=== PATIENT | male | born 1990 | race Caucasian/White ===

== ENCOUNTER 2017-05-31 19:30 | Emergency (ER) | payer OTHER ==
[~2017-05-31] VITALS: Ht 182.9 cm; Wt 116.8 kg
[2017-05-31 19:40] VITALS: BP 146/100
[2017-05-31] MEDS ORDERED: IBUP-1986 PO (20:22)
== END 2017-05-31 22:46 | disposition home or self-care (01) ==
LOC: ER 19:30 → EDBD 19:30 → ER 22:46
DX: S93.401A Sprain of unspecified ligament of right ankle, initial encounter (principal); Z88.5 Allergy status to narcotic agent; W17.89XA Other fall from one level to another, initial encounter; Y93.01 Activity, walking, marching and hiking; Y92.89 Other specified places as the place of occurrence of the external cause; Y99.8 Other external cause status
CPT/HCPCS: 29515; 73610; 99284

== ENCOUNTER 2021-02-01 07:48 | Emergency (ER) | payer BC, OTHER ==
[~2021-02-01] VITALS: Ht 182.9 cm; Wt 134.6 kg
[~2021-02-01 07:48] MED LIST: IBUP-1986 PO
[2021-02-01 09:38] LABS: BASOPHILS # (AUTO) 0.1 X10'3 (0-0.2); BASOPHILS % (AUTO) 0.5 % (0-1); EOSINOPHILS # (AUTO) 0.1 X10'3 (0-0.9); EOSINOPHILS % (AUTO) 1.2 % (0-6); HEMATOCRIT 46.8 % (42.0-52.0); HEMOGLOBIN 16.1 g/dl (14.0-17.9); LYMPHOCYTES # (AUTO) 1.9 X10'3 (1.1-4.8); LYMPHOCYTES % (AUTO) 20.2 % (21-51); MEAN CORPUSCULAR HEMOGLOBIN 30.7 PG (27.0-31.0); MEAN CORPUSCULAR HGB CONC 34.3 g/dL (33.0-36.5); MEAN CORPUSCULAR VOLUME 89.5 FL (78-98); MEAN PLATELET VOLUME 7.9 FL (7.4-10.4); MONOCYTES # (AUTO) 0.7 X10'3 (0-0.9); MONOCYTES % (AUTO) 6.8 % (2-12); NEUTROPHILS # (AUTO) 6.9 X10'3 (1.8-7.7); NEUTROPHILS % (AUTO) 71.3 % (42-75); PLATELET COUNT 333 X10'3 (140-440); RED BLOOD COUNT 5.23 X10'6 (4.70-6.10); RED CELL DISTRIBUTION WIDTH 13.3 % (11.5-14.5); WHITE BLOOD COUNT 9.6 X10'3 (4.5-11.0)
[2021-02-01 10:00] LABS: ALANINE AMINOTRANSFERASE 81 U/L (12-78); ALKALINE PHOSPHATASE 111 IU/L (46-116); ANION GAP 13 (8-16); BILIRUBIN,TOTAL 1.8 MG/DL (0.1-1.0); BLOOD UREA NITROGEN 13 MG/DL (7-18); BUN/CREATININE RATIO 8.8 (5.4-32.0); CALCIUM 8.6 MG/DL (8.5-10.1); CHLORIDE 107 MMOL/L (99-107); CREATININE 1.48 MG/DL (0.60-1.10); GLUCOSE 139 MG/DL (70-104); LIPASE 84 U/L (73-393); SODIUM 144 MMOL/L (135-145); TOTAL CARBON DIOXIDE 24.1 MMOL/L (24-32); eGFR 55 ML/MIN
[2021-02-01 10:02] LABS: ASPARTATE AMINO TRANSFERASE 35 U/L (10-37); POTASSIUM 4.4 MMOL/L (3.5-5.1)
[2021-02-01] MEDS ORDERED: normal saline 1000ML IV soln IVB ONE ×2 (12:00→12:25)
[2021-02-01] MEDS ORDERED: ondansetron/PF 4mg/2ml inj IV ONE ×2 (12:00→12:25)
[2021-02-01] MEDS ORDERED: sildenafil citrate 20mg tablet PO SCH (12:25)
[2021-02-01] MEDS ORDERED: ketorolac trometh. 30mg/ml inj. IV ONE (12:25)
[2021-02-01 12:43] LABS: MAGNESIUM 2.2 MG/DL (1.5-2.4)
[2021-02-01 12:49] LABS: ETHANOL < 0.010 GM/DL (0.0-0.010)
[2021-02-01] MEDS ORDERED: HYDR-3965 PO (14:11)
[2021-02-01] MEDS ORDERED: TADA5TAB2 PO (14:11)
[2021-02-01] MEDS ORDERED: NAPR-56 PO (14:11)
[2021-02-01 14:54] VITALS: BP 160/85
== END 2021-02-01 14:57 | disposition home or self-care (01) ==
LOC: ER 07:50
DX: N23 Unspecified renal colic (principal)
CPT/HCPCS: 36415; 74176; 80053; 80320; 83690; 83735; 85025; 96361; 96374; 96375; 99284; J1885; J2405; J7030; 96360